=== PATIENT | male | born 1935 | race Caucasian/White ===

== ENCOUNTER 2016-11-24 17:10 | Inpatient (IN) | payer OTHER, SELFPAY ==
--- NOTE | ~2016-11-24 | CN ---
Consultation Report [facility] [address] [place]. [address] NAME: CORWIN MENON : 36 STATUS : ADM IN PAT#: [id number] AGE: 80 ADM/REG DATE : 11/24/16 MR#: [id number] REPORT SERV DATE: 11/25/16 DICTATED BY: JUSTIN BARRERA DATE: 11/25/16 REPORT STATUS : Draft TRANSCRIBED BY: MODL DATE: 11/25/16 DATE OF CONSULTATION: 11/25/2016 REASON FOR CONSULTATION: New onset heart failure, NSTEMI. PRIMARY NIGHT AUDITOR: None. HISTORY OF PRESENT ILLNESS: Mr. Menon is a 80-year-old gentleman with a history of diabetes, hypertension, hyperlipidemia, obesity, and peripheral vascular disease, diagnosed remotely without intervention, admitted with progressive shortness of breath over the past several weeks that has worsened in particular over the past several days in the setting of Home Health finding him to be hypoxic at home. Here, he had imaging of his chest that demonstrated questionable masses in the left upper and left lower lobes as well as large left pleural effusion, moderate right pleural effusion, and significant paratracheal adenopathy suggestive of possible metastatic malignant disease. In light of his blurred pleural effusions, Pulmonary has completed a thoracentesis as of this morning. He additionally went for an echocardiogram that demonstrated new systolic heart failure. Given these findings, as well as increasing troponinemia, a consultation was called to us for further evaluation and cardiac care. In speaking with him and his , he has no known cardiac history. He was diagnosed with significant peripheral arterial disease in his bilateral lower extremities, many years ago, however, this was never intervened upon due to obesity per his . Outside of this, he denies having any chest pain/pressures in particular. His only symptoms include progressive dyspnea at rest as well as with exertion over the past several weeks. ALLERGIES: NONE. SOCIAL HISTORY: The patient lives at home with his and is fairly independent under normal circumstances. He is a heavy former smoker, approximately 80 pack years), and denies drug use. He is a heavy alcohol drinker (approximately one 6-pack per day, most days of the week). FAMILY HISTORY: Denies significant history of heart disease in his family. REVIEW OF SYSTEMS: As above, all other systems otherwise negative. PHYSICAL EXAMINATION: VITAL SIGNS: Blood pressure 136/70, pulse 110 sinus, temperature afebrile. GENERAL: Obese, no acute distress. Stoic. NEURO: Oriented x3. No focal deficits. HEAD AND NECK: Normocephalic, atraumatic. Moist mucous membranes. RESPIRATORY: Mildly increased work of breathing. Clear to auscultation anteriorly (the patient unable to sit up for posterior exam). Diminished breath sounds on the left lung. CARDIAC: Tachycardic. Regular. Normal S1, S2. No murmurs, rubs, or gallops. Consultation Report [place] [id number] [facility] [place]. [address] NAME: CORWIN MENON : 36 STATUS : ADM IN [facility]#: [id number] AGE: 80 ADM/REG DATE : 11/24/16 MR#: [id number] REPORT SERV DATE: 11/25/16 DICTATED BY: JUSTIN BARRERA DATE: 11/25/16 REPORT STATUS : Draft TRANSCRIBED BY: SLICK DATE: 11/25/16 ABDOMEN: Obese, soft, nontender, nondistended. No rebound or guarding. EXTREMITIES: Cool and dry. Diminished peripheral pulses (1+ bilateral upper and lower extremity pulses). SKIN: Grossly intact. No obvious active rash. PERTINENT TEST FINDINDS: Troponin 1.0 to 1.6 from today. TSH 4.3. Iron 17. Potassium 4.6, creatinine 0.9. White blood cell count 11.6, hemoglobin 9.6. EKG with sinus rhythm. Frequent PACs and PVCs. Inferolateral T-wave inversions. IMPRESSION AND PLAN: Mr. Menon is a 80-year-old gentleman with a history of diabetes, peripheral arterial disease of the lower extremities bilaterally (not intervened upon per , diagnosed years ago), hypertension, obesity, and significant tobacco smoking history (80-pack years) who presents to [facility] with progressive dyspnea at rest and with exertion in the setting of newly diagnosed severe systolic heart failure, a moderate-sized circumferential pericardial effusion without tamponade, questionable left upper and lower lung lesions on chest CT concerning for malignancy, plus paratracheal adenopathy concerning for metastatic disease, and significant bilateral pleural effusions. He has multiple processes going on and will need aggressive workup from both the pulmonary and cardiac standpoint. He is status post a thoracentesis as of this morning which will be helpful from a therapeutic as well as diagnostic perspective. With regard to his cardiovascular problems, I have the following recommendations by problem below: 1. Troponinemia/NSTEMI: He has a troponin that is elevated at 1.0 and now 1.6. He has gotten significant dyspnea as well as dyspnea with exertion. Finally, his EKG shows some inferolateral T-wave inversions. Collectively, I am concerned for an NSTEMI given these findings. I have discussed with him a coronary arteriogram with possible PCI and would recommend that he proceed with this procedure on Sunday. He is amenable with proceeding, as is his . He understands the risks and benefits of this procedure including but not limited to NM, , stroke. This will also be critical in the workup of #2. Otherwise, start him on heparin drip if okay with Pulmonary, start him on aspirin as well as a statin and beta-jamar. I will put him on for cardiac cath on Sunday. 2. New systolic heart failure (severe): EF 25%, with hypocontractility of the mid ventricle to the apex, which may be suggestive of multivessel coronary artery disease, versus stress cardiomyopathy. On further review, it does seem that he may have a little more regional hypocontractility of the anterior septum and apex, however, it is difficult to fully discern this given severe global hypocontractility. Nevertheless, coronary heart disease is high on the differential, therefore coronary angiogram will be critical in the workup of his heart failure. He does not appear to be markedly hypervolemic at this time. Therefore, I do not believe he were warrants aggressive diuresis. In addition, he has comorbid pericardial effusion with that is moderately- sized, therefore I do not believe he will do well with diuresis at this point in time, as he requires a certain filling pressures, so as not to develop tamponade. I will work to get him on guideline directed medical therapy for heart failure. 3. Moderate sized pericardial effusion: With some findings of increased intrapericardial Consultation Report [place] [id number] [place]. [address] NAME: CORWIN MENON : 37 STATUS : ADM IN [facility]#: [id number] AGE: 80 ADM/REG DATE : 11/24/16 MR#: [id number] REPORT SERV DATE: 11/25/16 DICTATED BY: JUSTIN BARRERA DATE: 11/25/16 REPORT STATUS : Draft TRANSCRIBED BY: SLICK DATE: 11/25/16 pressure without evidence of tamponade. He does not have an exaggerated transmitral inflow pattern, nor does he demonstrate RV diastolic collapse. I recommend checking an echocardiogram in approximately three to four days to reassess his pericardial effusion for interval changes. In the setting of possible left upper/lower lobe malignant masses, it is possible that he may have a pericardial effusion as a result of this disease process. 4. Bilateral pleural effusions/questionable lung masses/paratracheal adenopathy: All concerning for malignancy, especially in a substrate that has an 80-pack year smoking history and heavy drinking actively (six pack per day, most days of the week). Workup per Pulmonary, has already completed thoracentesis. Await the study findings. MARY/SLICK Justin Barrera MD / [id number] CC: MD Wilma Corado M.D.
--- NOTE | ~2016-11-24 | DS ---
Discharge Summary [facility] [address] [place]. [address] NAME: CORWIN MENON : 36 STATUS : ADM IN PAT#: [id number] AGE: 80 ADM/REG DATE : 11/24/16 MR#: [id number] REPORT SERV DATE: 11/30/16 DICTATED BY: Karolyn SANDS DATE: 11/30/16 REPORT STATUS : Draft TRANSCRIBED BY: SLICK DATE: 11/30/16 ADMISSION DATE: 11/24/2016 DISCHARGE DATE: 11/30/2016 DIAGNOSES AT TIME OF DISCHARGE: The pericardial effusion, malignant pleural effusion, stage IV adenocarcinoma, ischemic cardiomyopathy, anemia of chronic disease, suspected non-STEMI, and insulin-requiring diabetes. CONSULTS: Pulmonology and [facility]. PROCEDURES: Thoracentesis on the left complicated by a hydropneumothorax. BRIEF HOSPITAL COURSE: A 80-year-old male patient, presented with failure to thrive illness, malaise, shortness of breath. Found on imaging to have bilateral pleural fluid and a consolidation/mass in the left hilum concerning for malignancy. The patient ultimately underwent a thoracentesis on the left that resulted in a hydropneumothorax that was ultimately stable. Studies from that fluid did confirm the presence of adenocarcinoma. Other imaging did show a pericardial effusion that was confirmed on echo and followup echo. There was some consideration for proceeding to a pericardial window to avoid a future tamponade. However, once his adenocarcinoma was discovered, his family opted for a conservative approach and the decision for surgery was aborted. Because of the patient's advanced age, multiple comorbidities, particularly him having a known ischemic cardiomyopathy with ejection fraction of 20%, they opted for conservative care, DNR, with focus on palliation and comfort. Case Management involved [facility] and the ultimate decision was to transition him to home with [facility] for ongoing supportive and palliative care with the focus on comfort. The patient did transition from [facility] to home with the addition of [facility] on 11/30/2016. The patient will continue his current home medications with additional medicines for symptom control to be provided by Hospice. GUILLAUME/SLICK Karolyn Sands M.D. / [id number] CC: Mery Knowles M.D.
--- NOTE | ~2016-11-24 | CN ---
Consultation Report [facility] [address] [facility] [address] [place]. [address] NAME: CORWIN EMMANUEL : 36 STATUS : ADM IN [facility]#: [id number] AGE: 80 ADM/REG DATE : 11/24/16 MR#: [id number] REPORT SERV DATE: 11/25/16 DICTATED BY: AGUSTINA NUÑEZ DATE: 11/25/16 REPORT STATUS : Draft TRANSCRIBED BY: MODRaman DATE: 11/25/16 DATE OF CONSULTATION: 11/25/2016 REQUESTING PHYSICIAN: Shamar Schultz M.D. REASON FOR CONSULTATION: Shortness of breath, acute hypoxic respiratory failure, left lung mass with associated bilateral effusion. CHIEF COMPLAINT: The patient states he is short of breath. HISTORY OF PRESENT ILLNESS: Mr. Emmanuel is a 80-year-old gentleman with a past medical history noted below, who presents with shortness of breath and was found to have bilateral effusions with possibly a left lung mass, he is currently in the IMCU on BiPAP therapy. I talked to the patient about conducting a thoracentesis to help with his shortness of breath and further diagnosis of the etiology. He is also getting an ultrasound of his heart to evaluate for any abnormalities there. PAST MEDICAL HISTORY: Hypertension, diabetes, hypothyroidism, hyperlipidemia, and anemia. MEDICATIONS: Home medications reviewed, mostly antihypertensive medications, thyroid medications, diabetes medications, aspirin and iron. ALLERGIES: NO KNOWN DRUG ALLERGIES. SOCIAL HISTORY: The patient is a nonsmoker, nondrinker, he is . FAMILY HISTORY: Other family members with diabetes. REVIEW OF SYSTEMS: All pertinent review of systems reviewed and is otherwise negative. PHYSICAL EXAMINATION: VITAL SIGNS: Heart rate around 105, respiratory rate 25, currently on BiPAP therapy, removed the BiPAP and patient did fine on 3 L nasal cannula, oxygen saturation greater than 95%. Blood pressure currently around 110 systolic. HEENT: No JVD, no cervical lymphadenopathy. PULMONARY: No wheezing, decreased breath sounds bilaterally. CARDIAC: Tachycardia, no murmurs. ABDOMEN: Soft, nontender, nondistended. EXTREMITIES: Extremity is lukewarm, peripheral pulses noted, no lower extremity edema. NEUROLOGIC: The patient has some truncal weakness, but otherwise is able to move all extremities with no difficulty. LABORATORY EXAMINATION: Mild leukocytosis, negative procalcitonin, normal INR, good kidney function, glucose elevated, troponin 1.61, BNP 55, and LDH 580. Consultation Report [place] [id number] [facility] [place]. [address] NAME: CORWIN EMMANUEL : 36 STATUS : ADM IN PAT#: [id number] AGE: 80 ADM/REG DATE : 11/24/16 MR#: [id number] REPORT SERV DATE: 11/25/16 DICTATED BY: AGUSTINA NUÑEZ DATE: 11/25/16 REPORT STATUS : Draft TRANSCRIBED BY: MODL DATE: 11/25/16 ASSESSMENT AND PLAN: Mr. Emmanuel is a 80-year-old gentleman with a past medical history noted above, who presents to the Pulmonary Consult Service in acute hypoxic respiratory failure, possible left lung mass, bilateral effusions. 1. Acute hypoxic respiratory failure: After thoracentesis, we switched him to nasal cannula and the patient seems to be doing fine from that perspective. We will continue the nasal cannula. 2. Bilateral pleural effusions: At this moment of time, we have conducted a thoracentesis on the left, we will send that up for cytology, checking a repeat CT scan to make sure that there is no lung mass that needs a biopsy from an endoscopic perspective. I am concerned looking at the pleural effusion that this may be underlying lung cancer. However with his ejection fraction currently depressed, the patient may also have a component of heart failure. 3. Acute us systolic congestive heart failure: This echocardiogram result has just been reviewed, recommend that the primary team have further evaluation possibly by Cardiology. Troponin is increasing to 1.6. Thank you very much for this consultation and allowing us to participate in your patient's care, please call us with any further questions or concerns. HFQ/MODL Agustina Nuñez MD / [id number] CC: Mery Knowles M.D.
--- NOTE | ~2016-11-24 | HP ---
History And Physical [address] [place]. [address] NAME: CORWIN MENON : 36 STATUS : ADM IN PAT#: [id number] AGE: 80 ADM/REG DATE : 11/24/16 MR#: [id number] REPORT SERV DATE: 11/24/16 DICTATED BY: SHAMAR JOY DATE: 11/24/16 REPORT STATUS : Draft TRANSCRIBED BY: MODL DATE: 11/24/16 DATE OF ADMISSION: 11/24/2016 CHIEF COMPLAINT: Shortness of breath. HISTORY OF PRESENT ILLNESS: This is a 80-year-old gentleman with a history of diabetes, hypertension, hyperlipidemia, but otherwise no heart or lung problems, presenting with a shortness of breath. The patient reports that he had a cough for several weeks that almost became a chronic. The cough itself is nonproductive, and the patient was otherwise not acutely ill with fevers nor chills. Then for the past three to four days, the patient started developing more and more significant shortness of breath that prevented him even talking normally. The patient was seen by his PCP past week, who ordered a Home Health, and when Home Health came and visited him today, they realize the patient's oxygen saturations were low, and apparently his blood pressures were low too. The patient was thus referred to the ER for further evaluation and care. In the ER, the patient was found to be afebrile and hemodynamically stable other than sinus tachycardia with heart rate in the 1-teens. The patient was able to maintain adequate oxygen saturations on 2 L of oxygen. Initial lab evaluation was fairly benign. The patient had mild hyponatremia, mild leukocytosis, and mild anemia. Chest x-ray then showed whitening out of his left chest. Internal Medicine consultation was thus requested for admission of the patient for further evaluation and care. REVIEW OF SYSTEMS: The patient denies any fevers or chills. Also, 14-point review of systems reviewed and negative other than mentioned above. MEDICATIONS: 1. Ferrous sulfate 325 mg p.o. b.i.d. 2. Zocor 20 mg p.o. at bedtime. 3. Aspirin 81 mg p.o. q.a.m. 4. Janumet 50/500 one tablet p.o. b.i.d. 5. Synthroid 75 mcg p.o. q.a.m. 6. Lisinopril 20 mg p.o. q.a.m. ALLERGIES: NKDA. PAST MEDICAL HISTORY: 1. Hypertension. 2. Diabetes, type 2. 3. Hyperlipidemia. 4. Hypothyroidism. PAST SURGICAL HISTORY: Hernia repairs. FAMILY HISTORY: Diabetes. History And Physical [address] [address] NAME: CORWIN MENON : 37 STATUS : ADM IN [facility]#: [id number] AGE: 80 ADM/REG DATE : 11/24/16 MR#: [id number] REPORT SERV DATE: 11/24/16 DICTATED BY: SHAMAR JOY DATE: 11/24/16 REPORT STATUS : Draft TRANSCRIBED BY: SLICK DATE: 11/24/16 SOCIAL HISTORY: The patient does not smoke, drink alcohol, or use any illicit drugs. The patient lives at home with his , who is at bedside here in the ER. PHYSICAL EXAMINATION: VITAL SIGNS: Temperature 98.0, blood pressure 120/67, pulse 115, respiratory rate is 18, saturating 98% on 2 L of oxygen. NEURO: The patient is alert and oriented x3 with no focal neurologic deficits. GENERAL: The patient is awake, does not appear to be in acute distress, and he is cooperative. NECK: No JVD. No lymphadenopathy. Normal thyroid. CHEST: No midline sternotomy scar and no tenderness to palpation. LUNGS: The patient has a clear right-sided lung cota and diminished breath sounds on the left. The patient is on 2 L of oxygen, although he does not appear to be short of breath, he is not able to carry on a conversation without getting short of breath. CARDIOVASCULAR: The patient is tachycardic. Otherwise, no murmurs, rubs, or gallops, and PMI is nondisplaced. ABDOMEN: Soft, nontender, with active bowel sounds and no organomegaly. EXTREMITIES: No edema. Normal distal pulses. No calf tenderness. SKIN: Clean, dry, warm, and intact. LABORATORY DATA: Sodium is 129, potassium 4.6, chloride 89, BUN 19, creatinine 0.90, glucose 173, calcium 8.9. LFTs are benign. White blood cell count is 11.7, hemoglobin is 9.6, platelets 452, INR is 1.1. Troponin is 55.1. ABG shows pH of 7.34, pCO2 of 51, pO2 84, and oxygen saturation of 95.6% on 2 L of oxygen. Chest x-ray was personally interpreted and it shows clear right-sided lung cota, and the left lung field was jean-pierre-out. ASSESSMENT: This is a 80-year-old gentleman with history of hypertension, diabetes, hyperlipidemia, presenting with a shortness of breath. 1. Shortness of breath with possible left-sided pleural effusion. Of note, the patient is not known to have any heart or lung diseases at baseline. 2. Hyponatremia. 3. Anemia. 4. Hypertension. 5. Diabetes. 6. Hyperlipidemia. 7. Hypothyroidism. PLAN: My plan is to admit the patient under telemetry monitoring. I have asked the ER to perform a CT of the chest to better characterize the abnormal lung findings. If the CT will likely dictate, further evaluation or therapy. As far as hyponatremia goes, the patient will be given gentle IV fluid resuscitation. Otherwise, for the rest of stable past medical conditions, including hypertension, diabetes, hyperlipidemia, et al., I will continue home medications. Standard DVT prophylaxis. The patient is full code at this time. History And Physical [address] [address] NAME: CORWIN MENON : 37 STATUS : ADM IN [facility]#: [id number] AGE: 80 ADM/REG DATE : 11/24/16 MR#: [id number] REPORT SERV DATE: 11/24/16 DICTATED BY: SHAMAR JOY DATE: 11/24/16 REPORT STATUS : Draft TRANSCRIBED BY: SLICK DATE: 11/24/16 [facility]/SLICK Shamar Joy MD / [id number] CC: MD Wilma Corado M.D.
--- NOTE | ~2016-11-24 | OP ---
Record Of Operation [facility] [address] [place]. [address] NAME: CORWIN MENON : 37 STATUS : ADM IN PAT#: [id number] AGE: 80 ADM/REG DATE : 11/24/16 MR#: [id number] REPORT SERV DATE: 11/25/16 DICTATED BY: AGUSTINA NUÑEZ DATE: 11/25/16 REPORT STATUS : Draft TRANSCRIBED BY: MODL DATE: 11/25/16 DATE OF PROCEDURE: 11/25/2016 PROCEDURE: Left-sided ultrasound-guided thoracentesis. INDICATION: Acute hypoxic respiratory failure with increased work of breathing and what looks to be a left lung mass and associated pleural effusion in the setting of possible congestive heart failure. PREOPERATIVE DIAGNOSIS: Left lung mass with associated effusion. POSTOPERATIVE DIAGNOSIS: Left lung mass with associated effusion. PROCEDURE NOTE: The patient was positioned upright, using ultrasound guidance, we were able to james the site of insertion. We sterilized and draped the back in standard fashion, we inserted a standard thoracentesis needle into the site after numbing this area with local anesthesia of lidocaine. Upon insertion of the thoracentesis needle into the thoracic cavity, we brought a straw-colored somewhat exudative-appearing fluid, which after draining 1 L, turned into more of a sanguinous, but not active bleeding, more so of a sediment at the bottom of the thoracic cavity. Using ultrasound guidance, the effusion was mostly taken out, we aborted the procedure slightly early as the patient felt weak and could not sit up any further. We were able to remove 1 L off. OUTCOME: Successful left-sided ultrasound-guided thoracentesis, no complications of bleeding or pneumothorax was noted. PLAN: Recommend that patient have this sent out for culture studies, cell count, cytology. Furthermore, recommend having a repeat CT scan as we have lung reexpansion as the patient may need to have a bronchoscopy for any central obstructing lesions. HFQ/SLICK Agustina Nuñez MD / [id number] CC: Mery Knowles M.D.
[2016-11-24 17:35] LABS: BASOPHILS 0.4 %; BASOPHILS ABSOLUTE 0.05 10/3/uL (0.0-0.16); EOSINOPHILS 1.1 %; EOSINOPHILS ABSOLUTE 0.13 10/3/uL (0.0-0.53); HEMATOCRIT 30.9 % (40.0-51.0); HEMOGLOBIN 9.6 g/dL (13.6-17.8); IMMATURE GRANULOCYTES 0.8 %; IMMATURE GRANULOCYTES ABSOLUTE 0.09 10/3/uL (0.0-0.11); LYMPHOCYTES 17.8 %; LYMPHOCYTES ABSOLUTE 2.08 10/3/uL (0.67-4.30); MEAN CORPUS HGB CONC 31.1 g/dL (32.0-36.0); MEAN CORPUSCULAR HEMOGLOB 19.7 pg (26.0-34.0); MEAN PLATELET VOLUME 8.7 fL (9.2-13.0); MONOCYTES 10.1 %; MONOCYTES ABSOLUTE 1.18 10/3/uL (0.21-1.20); NEUTROPHILS 69.8 %; NEUTROPHILS ABSOLUTE 8.13 10/3/uL (2.02-8.40); RBC DISTRIBUTION WIDTH 16.7 % (12.0-16.0); RED CELL COUNT 4.88 10/6/uL (4.7-6.1)
[2016-11-24 17:36] LABS: ER CBC TAT 0 Hrs 08 Mins; WHITE BLOOD CELLS 11.7 10/3/uL (4.5-10.5)
[2016-11-24 17:37] LABS: MANUAL DIFF NO %; MEAN CORPUSCULAR VOLUME 63.3 fL (80-100); PLATELET COUNT 452 10/3/uL (150-400)
[2016-11-24 17:43] LABS: PARTIAL THROMBO TIME 44.5 SEC (22.5-37.2)
[2016-11-24 17:46] LABS: INTERNATIONAL NORMAL RATI 1.1 UNITS (-); PROTIME (NOT ORD) 14.5 SEC (12.0-14.5)
[2016-11-24 17:48] LABS: BUN (BLOOD UREA NITROGEN) 19 MG/DL (6-23); CALCIUM, SERUM 8.9 MG/DL (8.5-10.4); GFR AFRICAN AMERICAN 94 ML/MIN (>=60); GFR NON AFRICAN AMERICAN 81 ML/MIN (>=60); POTASSIUM, SERUM 4.6 MMOL/L (3.5-5.3); SGOT(AST) 13 U/L (5-40); SGPT(ALT) 17 U/L (5-65); TOTAL BILIRUBIN 0.3 MG/DL (0-1.2); TOTAL PROTEIN 8.5 G/DL (6.0-8.5)
[2016-11-24 17:49] LABS: PLATELET ESTIMATE SLT INC (ADEQUATE)
[2016-11-24 17:50] LABS: A/G RATIO 0.5 (0.7-1.9); ALKALINE PHOSPHATASE 80 U/L (45-117); CHLORIDE, SERUM 89 MMOL/L (96-112); CO2 (CARBON DIOXIDE) 30 MMOL/L (24-34); GLOBULIN 5.5 G/DL (2.5-4.1); GLUCOSE, SERUM 173 MG/DL (60-99); SODIUM, SERUM 129 MMOL/L (135-148)
[2016-11-24 17:52] LABS: OVALOCYTES 1+ (3-10/OIF) (0-2/OIF)
[2016-11-24 17:53] LABS: HYPOCHROMIA 1+ (3-10/OIF) (0-2/OIF)
[2016-11-24 17:54] LABS: HELMET CELLS OCC (0-2/OIF); SCHISTOCYTES OCC (0-2/OIF)
[2016-11-24 17:55] LABS: TEARDROP SHAPED RBCS FEW (3-10/OIF)
[2016-11-24 17:56] LABS: POLYCHROMASIA 1+ (2-5/OIF) (0-1/OIF)
[2016-11-24 19:36] LABS: BE (BASE EXCESS) 0.7 MEQ/L (0 +/- 2.5); CARBOXYHEMOGLOBIN 1.8 % (0-3); DEVICE NC; HCO3 (ACTUAL BICARBONATE) 26.9 MEQ/L (23-27); HEMOBLOGIN CONTENT 10.6 G/DL (14-18); INSTRUMENT SERIAL # 8087; METHEMOGLOBIN 0.4 % (0-3); O2 CONTENT 14.1 VOL% (18-24); OPERATOR ID 17589; PCO2 (CO2 TENSION) 51 MMHG (35-45); PO2 (O2 TENSION) 84 MMHG (79-93); SAMPLE Arterial; pH 7.34 (7.37-7.43)
[2016-11-24 19:37] LABS: ALLENS TEST Pos
[2016-11-24] MEDS ORDERED: FERROUS SULF325 M1 PO (19:45)
[2016-11-24] MEDS ORDERED: ZOCOR20 PO (19:46)
[2016-11-24] MEDS ORDERED: HALF81 PO (19:46)
[2016-11-24] MEDS ORDERED: JANUMET 50/500 PO (19:47)
[2016-11-24] MEDS ORDERED: SYN075 PO (19:47)
[2016-11-24] MEDS ORDERED: PRIN20 PO (19:48)
[2016-11-25 00:19] LABS: ALLENS TEST Pos; BE (BASE EXCESS) -2.9 MEQ/L (0 +/- 2.5); CARBOXYHEMOGLOBIN 1.1 % (0-3); DEVICE NRB; HCO3 (ACTUAL BICARBONATE) 26.1 MEQ/L (23-27); HEMOBLOGIN CONTENT 10.3 G/DL (14-18); INSTRUMENT SERIAL # 8087; METHEMOGLOBIN 0.4 % (0-3); O2 CONTENT 14.3 VOL% (18-24); OPERATOR ID 17537; PCO2 (CO2 TENSION) 70 MMHG (35-45); PO2 (O2 TENSION) 132 MMHG (79-93); SAMPLE Arterial; pH 7.19 (7.37-7.43)
[2016-11-25 02:13] LABS: ALBUMIN 2.9 G/DL (3.5-5.0)
[2016-11-25 02:35] LABS: BE (BASE EXCESS) -5.1 MEQ/L (0 +/- 2.5); HCO3 (ACTUAL BICARBONATE) 21.5 MEQ/L (23-27); INSTRUMENT SERIAL # 8083; PCO2 (CO2 TENSION) 47 MMHG (35-45); PO2 (O2 TENSION) 114 MMHG (79-93); pH 7.28 (7.37-7.43)
[2016-11-25 02:36] LABS: ALLENS TEST Pos; BIPAP 15/5 cm.H2O; CARBOXYHEMOGLOBIN 0.4 % (0-3); HEMOBLOGIN CONTENT 10.1 G/DL (14-18); METHEMOGLOBIN 0.3 % (0-3); OPERATOR ID 13415; SAMPLE Arterial
[2016-11-25 04:16] LABS: PROCALCITONIN <0.05 ng/mL (<0.5)
[2016-11-25 05:00] LABS: ASCORBIC ACID (UR NOT ORDER) 40 (NEG); BILIRUBIN, URINE NEGATIVE (NEG); KETONE, URINE TRACE MG/DL (NEG); LEUKOCYTE ESTERASE(NOT OR NEG (NEG); WBC (NOT ORDERED) (RFLEX) 5 (0-5)
[2016-11-25 06:12] LABS: BUN (BLOOD UREA NITROGEN) 19 MG/DL (6-23); CALCIUM, SERUM 8.5 MG/DL (8.5-10.4); CHLORIDE, SERUM 94 MMOL/L (96-112); CHOL/HDL RATIO(NOT ORDER) 2.3 (0-5); CHOLESTEROL 105 MG/DL (< 200); CO2 (CARBON DIOXIDE) 28 MMOL/L (24-34); CREATININE 0.99 MG/DL (0.70-1.30); FERRITIN 651 NG/ML (26-388); FOLATE 27.9 NG/ML (>5.2); GFR AFRICAN AMERICAN 84 ML/MIN (>=60); GFR NON AFRICAN AMERICAN 72 ML/MIN (>=60); GLUCOSE, SERUM 185 MG/DL (60-99); HDL CHOLESTEROL 46 MG/DL (> 39); IRON BINDING CAPACITY 191 MCG/DL (250-450); IRON, SERUM 17 MCG/DL (35-150); LDL CHOLESTEROL 45 MG/DL (< 130); NON-HDL CHOLESTEROL 59 MG/DL (< 160); POTASSIUM, SERUM 4.7 MMOL/L (3.5-5.3); SODIUM, SERUM 132 MMOL/L (135-148); TRIGLYCERIDE 71 MG/DL (< 150)
[2016-11-25 13:08] LABS: BF TOTAL CELL CT (NOT ORD 3435 /MM3; BODY FLUID RBC (NOT ORD) 13832 /MM3
[2016-11-25 13:20] LABS: LDH BODY FLUID (NOT ORD) 710 U/L; PROTEIN BODY FLUID 4.9 G/DL
[2016-11-25 13:29] LABS: PHOSPHORUS, SERUM 4.1 MG/DL (2.5-4.5)
[2016-11-25 13:34] LABS: BD FL LYMPH (NOT ORD) 81 %; BF BASO (NOT OF) 0 %; BF LARGE MONONUCLEAR 13 %; BODY FLUID EOS (NOT ORD) 0 %; BODY FLUID SEG (NOT ORD) 6 %
[2016-11-25 13:35] LABS: BD FL SOURCE (NOT ORD) LT THORACENTESIS
[2016-11-26 03:42] LABS: BASOPHILS 0.3 %; BASOPHILS ABSOLUTE 0.04 10/3/uL (0.0-0.16); EOSINOPHILS 0.9 %; EOSINOPHILS ABSOLUTE 0.12 10/3/uL (0.0-0.53); HEMATOCRIT 28.3 % (40.0-51.0); HEMOGLOBIN 8.9 g/dL (13.6-17.8); IMMATURE GRANULOCYTES 0.7 %; IMMATURE GRANULOCYTES ABSOLUTE 0.09 10/3/uL (0.0-0.11); LYMPHOCYTES 12.6 %; LYMPHOCYTES ABSOLUTE 1.73 10/3/uL (0.67-4.30); MANUAL DIFF NO %; MEAN CORPUS HGB CONC 31.4 g/dL (32.0-36.0); MEAN CORPUSCULAR HEMOGLOB 19.9 pg (26.0-34.0); MEAN CORPUSCULAR VOLUME 63.3 fL (80-100); MEAN PLATELET VOLUME 8.9 fL (9.2-13.0); MONOCYTES 12.3 %; MONOCYTES ABSOLUTE 1.69 10/3/uL (0.21-1.20); NEUTROPHILS 73.2 %; NEUTROPHILS ABSOLUTE 10.07 10/3/uL (2.02-8.40); PLATELET COUNT 398 10/3/uL (150-400); RBC DISTRIBUTION WIDTH 16.7 % (12.0-16.0); RED CELL COUNT 4.47 10/6/uL (4.7-6.1); WHITE BLOOD CELLS 13.7 10/3/uL (4.5-10.5)
[2016-11-26 03:56] LABS: A/G RATIO 0.5 (0.7-1.9); ALBUMIN 2.5 G/DL (3.5-5.0); BUN (BLOOD UREA NITROGEN) 21 MG/DL (6-23); CALCIUM, SERUM 8.7 MG/DL (8.5-10.4); CHLORIDE, SERUM 94 MMOL/L (96-112); CO2 (CARBON DIOXIDE) 26 MMOL/L (24-34); CREATININE 0.91 MG/DL (0.70-1.30); GFR AFRICAN AMERICAN 93 ML/MIN (>=60); GFR NON AFRICAN AMERICAN 80 ML/MIN (>=60); GLOBULIN 4.8 G/DL (2.5-4.1); POTASSIUM, SERUM 4.9 MMOL/L (3.5-5.3); SGOT(AST) 18 U/L (5-40); SGPT(ALT) 15 U/L (5-65); SODIUM, SERUM 132 MMOL/L (135-148); TOTAL BILIRUBIN 0.4 MG/DL (0-1.2); TOTAL PROTEIN 7.3 G/DL (6.0-8.5)
[2016-11-26 03:57] LABS: ALKALINE PHOSPHATASE 67 U/L (45-117); GLUCOSE, SERUM 144 MG/DL (60-99)
[2016-11-26 04:02] LABS: ANISOCYTOSIS 1+ (5-10/OIF) (0-5/OIF); ELLIPTOCYTES 1+ (3-10/OIF) (0-2/OIF); HYPOCHROMIA 3+ (>30/OIF) (0-2/OIF); PLATELET ESTIMATE ADQ (ADEQUATE); POLYCHROMASIA 1+ (2-5/OIF) (0-1/OIF); TARGET CELLS FEW (3-10/OIF) (0-1/OIF)
[2016-11-27 05:43] LABS: BASOPHILS 0.2 %; BASOPHILS ABSOLUTE 0.02 10/3/uL (0.0-0.16); EOSINOPHILS 0.6 %; EOSINOPHILS ABSOLUTE 0.08 10/3/uL (0.0-0.53); HEMATOCRIT 26.3 % (40.0-51.0); HEMOGLOBIN 8.2 g/dL (13.6-17.8); IMMATURE GRANULOCYTES 0.5 %; IMMATURE GRANULOCYTES ABSOLUTE 0.07 10/3/uL (0.0-0.11); LYMPHOCYTES 9.5 %; LYMPHOCYTES ABSOLUTE 1.26 10/3/uL (0.67-4.30); MEAN CORPUS HGB CONC 31.2 g/dL (32.0-36.0); MEAN CORPUSCULAR HEMOGLOB 19.5 pg (26.0-34.0); MEAN CORPUSCULAR VOLUME 62.5 fL (80-100); MEAN PLATELET VOLUME 9.3 fL (9.2-13.0); MONOCYTES 9.6 %; MONOCYTES ABSOLUTE 1.27 10/3/uL (0.21-1.20); NEUTROPHILS 79.6 %; NEUTROPHILS ABSOLUTE 10.59 10/3/uL (2.02-8.40); PLATELET COUNT 388 10/3/uL (150-400); RBC DISTRIBUTION WIDTH 16.9 % (12.0-16.0); RED CELL COUNT 4.21 10/6/uL (4.7-6.1); WHITE BLOOD CELLS 13.3 10/3/uL (4.5-10.5)
[2016-11-27 05:45] LABS: MANUAL DIFF NO %
[2016-11-27 06:02] LABS: A/G RATIO 0.5 (0.7-1.9); ALBUMIN 2.4 G/DL (3.5-5.0); ALKALINE PHOSPHATASE 62 U/L (45-117); BUN (BLOOD UREA NITROGEN) 21 MG/DL (6-23); CALCIUM, SERUM 8.4 MG/DL (8.5-10.4); CHLORIDE, SERUM 96 MMOL/L (96-112); CO2 (CARBON DIOXIDE) 24 MMOL/L (24-34); CREATININE 0.74 MG/DL (0.70-1.30); GFR AFRICAN AMERICAN 102 ML/MIN (>=60); GFR NON AFRICAN AMERICAN 88 ML/MIN (>=60); GLOBULIN 4.4 G/DL (2.5-4.1); GLUCOSE, SERUM 156 MG/DL (60-99); POTASSIUM, SERUM 4.6 MMOL/L (3.5-5.3); SGOT(AST) 13 U/L (5-40); SGPT(ALT) 13 U/L (5-65); SODIUM, SERUM 131 MMOL/L (135-148); TOTAL BILIRUBIN 0.3 MG/DL (0-1.2); TOTAL PROTEIN 6.8 G/DL (6.0-8.5)
[2016-11-27 06:33] LABS: ANISOCYTOSIS 1+ (5-10/OIF) (0-5/OIF); POLYCHROMASIA 1+ (2-5/OIF) (0-1/OIF)
[2016-11-27 06:34] LABS: HELMET CELLS OCC (0-2/OIF); TEARDROP SHAPED RBCS OCC (0-2/OIF)
[2016-11-27 06:35] LABS: PLATELET ESTIMATE ADQ (ADEQUATE)
[2016-11-28 06:31] LABS: BASOPHILS 0.3 %; BASOPHILS ABSOLUTE 0.03 10/3/uL (0.0-0.16); EOSINOPHILS 0.7 %; EOSINOPHILS ABSOLUTE 0.08 10/3/uL (0.0-0.53); HEMOGLOBIN 8.5 g/dL (13.6-17.8); IMMATURE GRANULOCYTES 0.6 %; IMMATURE GRANULOCYTES ABSOLUTE 0.07 10/3/uL (0.0-0.11); LYMPHOCYTES 9.8 %; LYMPHOCYTES ABSOLUTE 1.17 10/3/uL (0.67-4.30); MANUAL DIFF NO %; MEAN CORPUS HGB CONC 31.5 g/dL (32.0-36.0); MEAN CORPUSCULAR VOLUME 63.7 fL (80-100); MEAN PLATELET VOLUME 8.8 fL (9.2-13.0); MONOCYTES 10.6 %; MONOCYTES ABSOLUTE 1.27 10/3/uL (0.21-1.20); NEUTROPHILS ABSOLUTE 9.37 10/3/uL (2.02-8.40); PLATELET COUNT 362 10/3/uL (150-400); RBC DISTRIBUTION WIDTH 17.1 % (12.0-16.0); RED CELL COUNT 4.24 10/6/uL (4.7-6.1)
[2016-11-28 06:34] LABS: INTERNATIONAL NORMAL RATI 1.2 UNITS (-); PROTIME (NOT ORD) 15.5 SEC (12.0-14.5)
[2016-11-28 06:35] LABS: PARTIAL THROMBO TIME 44.3 SEC (22.5-37.2)
[2016-11-28 06:41] LABS: BUN (BLOOD UREA NITROGEN) 24 MG/DL (6-23); CALCIUM, SERUM 8.6 MG/DL (8.5-10.4); CHLORIDE, SERUM 100 MMOL/L (96-112); CO2 (CARBON DIOXIDE) 23 MMOL/L (24-34); CREATININE 0.69 MG/DL (0.70-1.30); GFR AFRICAN AMERICAN 105 ML/MIN (>=60); GFR NON AFRICAN AMERICAN 90 ML/MIN (>=60); GLUCOSE, SERUM 145 MG/DL (60-99); POTASSIUM, SERUM 4.7 MMOL/L (3.5-5.3); SODIUM, SERUM 134 MMOL/L (135-148)
[2016-11-28 07:06] LABS: ANISOCYTOSIS 1+ (5-10/OIF) (0-5/OIF); MICROCYTES 4+ (>50/OIF) (0-5/OIF); PLATELET ESTIMATE ADQ (ADEQUATE)
[2016-11-28 07:08] LABS: POIKILOCYTOSIS 1+ (5-10/OIF) (0-5/OIF); POLYCHROMASIA 1+ (2-5/OIF) (0-1/OIF)
[2016-11-29 04:36] LABS: BASOPHILS 0.2 %; BASOPHILS ABSOLUTE 0.02 10/3/uL (0.0-0.16); EOSINOPHILS 0.4 %; EOSINOPHILS ABSOLUTE 0.04 10/3/uL (0.0-0.53); HEMOGLOBIN 8.4 g/dL (13.6-17.8); IMMATURE GRANULOCYTES 0.5 %; IMMATURE GRANULOCYTES ABSOLUTE 0.06 10/3/uL (0.0-0.11); LYMPHOCYTES 11.2 %; LYMPHOCYTES ABSOLUTE 1.24 10/3/uL (0.67-4.30); MANUAL DIFF NO %; MEAN CORPUS HGB CONC 31.1 g/dL (32.0-36.0); MEAN CORPUSCULAR VOLUME 64.1 fL (80-100); MEAN PLATELET VOLUME 9.1 fL (9.2-13.0); MONOCYTES 9.3 %; MONOCYTES ABSOLUTE 1.03 10/3/uL (0.21-1.20); NEUTROPHILS 78.4 %; NEUTROPHILS ABSOLUTE 8.66 10/3/uL (2.02-8.40); PLATELET COUNT 385 10/3/uL (150-400); RBC DISTRIBUTION WIDTH 17.2 % (12.0-16.0); RED CELL COUNT 4.21 10/6/uL (4.7-6.1); WHITE BLOOD CELLS 11.1 10/3/uL (4.5-10.5)
[2016-11-29 04:45] LABS: INTERNATIONAL NORMAL RATI 1.3 UNITS (-); PARTIAL THROMBO TIME 45.4 SEC (22.5-37.2); PROTIME (NOT ORD) 15.7 SEC (12.0-14.5)
[2016-11-29 05:08] LABS: ANISOCYTOSIS 1+ (5-10/OIF) (0-5/OIF); MICROCYTES 4+ (>50/OIF) (0-5/OIF); PLATELET ESTIMATE ADQ (ADEQUATE)
== END 2016-11-30 17:40 | disposition hospice, home (50) | DRG 180 ==
LOC: ER 17:10 → 2SO 21:28 → IMCU 11-25 00:32
PROVIDERS: Emergency Medicine; Hospitalist; Internal Medicine; Internal Medicine Critical Care Medicine
PROC: 0W9B30Z Drainage of Left Pleural Cavity with Drainage Device, Percutaneous Approach (ICD-10-PCS; principal; 2016-11-25)
DX: C34.02 Malignant neoplasm of left main bronchus (principal); J96.01 Acute respiratory failure with hypoxia; I50.21 Acute systolic (congestive) heart failure; J91.0 Malignant pleural effusion; I24.8 Other forms of acute ischemic heart disease; D64.9 Anemia, unspecified; E11.9 Type 2 diabetes mellitus without complications; I30.9 Acute pericarditis, unspecified; E87.1 Hypo-osmolality and hyponatremia; E78.5 Hyperlipidemia, unspecified; E03.9 Hypothyroidism, unspecified; I25.5 Ischemic cardiomyopathy; R62.7 Adult failure to thrive; Z66 Do not resuscitate; Z51.5 Encounter for palliative care; I11.0 Hypertensive heart disease with heart failure
CPT/HCPCS: 36415; 36600; 71010; 71250; 80048; 80053; 80061; 81001; 82040; 82330; 82607; 82728; 82746; 82805; 82962; 83540; 83550; 83605; 83615; 83735; 83880; 84100; 84145; 84157; 84443; 84484; 85025; 85610; 85730; 86850; 86900; 86901; 86920; 87040; 87070; 87205; 87641; 88112; 88305; 88341; 88342; 89051; 93005; 93308; 93321; 94640; 94660; 99285; A9270-GY; C8929; Q9957